=== PATIENT | female | born 1980 | race African-American/Black ===

== ENCOUNTER → 2019-06-29 | Emergency (ER) | payer SELFPAY ==
[~2019-06-29] VITALS: Ht 170.2 cm; Wt 61.2 kg
[~2019-06-29] MED LIST: BACITRACIN15 GM TOPIC; CIPROFLOXACIN500 M2 ORAL; CLARITIN-D 121 EAC1 ORAL; GUAIFENESIN1200 MG PO; IBUPROFEN600 MG ORAL; KEFLEX500 MG ORAL
[2019-06-29 16:53] VITALS: BP 122/79
--- NOTE | 2019-06-29 17:00 | NUR ---
ED Nurse Note: Patient arrived to ED by car from home complaining of pain in left foot x 4 days. AxO x 4, no acute distress at this time. Patient did not injure the foot but states that it might be a pair of shoes she was wearing.
--- NOTE | 2019-06-29 17:29 | Emergency Room Report ---
History of Present Illness General Chief Complaint: Pain Source: Patient Present Illness HPI 38-year-old female presents to the emergency department complaining of 5 out of 10 severity pain x4 days localized to the base of the left great toe. Patient denies trauma or fall however she states onset of her symptoms was after wearing high heels all day. She reports walking exacerbates her pain. She denies erythema, swelling, bruising or warmth. She denies history of gout. She denies any aggravating or relieving factors at this time. Allergies: Coded Allergies: NO KNOWN DRUG ALLERGIES (Unverified Allergy, Unknown, 03/18/14) Patient History Past Medical History: see triage record Past Surgical History: none Pertinent Family History: none Last Menstrual Period: 1 week ago Reviewed Nursing Documentation: PMH: Agreed; PSxH: Agreed Nursing Documentation-PMH Past Medical History: No Stated History Review of Systems All Other Systems: negative except mentioned in HPI Physical Exam Vital Signs Date Time Temp Pulse Resp B/P (MAP) Pulse Ox O2 Delivery O2 Flow Rate FiO2 06/29/19 16:53 98.8 86 16 122/79 (93) 98 Room Air Sp02 EP Interpretation: reviewed, normal General Appearance: no apparent distress, alert, GCS 15, non-toxic Head: normocephalic, atraumatic Eyes: bilateral eye normal inspection, bilateral eye PERRL ENT: hearing grossly normal, normal voice Neck: full range of motion Respiratory: lungs clear, normal breath sounds, speaking full sentences Cardiovascular #1: regular rate, rhythm, normal capillary refill Cardiovascular #2: 2+ dorsalis pedis (L) Musculoskeletal: normal range of motion, gait/station normal, tender - TTP and the plantar aspect of the left first metatarsal joint. Pain with extension of the left great toe. No obvious deformity, erythema, warmth, bruising or swelling. Neurologic: alert, motor strength/tone normal, oriented x3, sensory intact, responsive, speech normal Psychiatric: judgement/insight normal Skin: normal color, normal inspection Medical Decision Making PA Attestation Dr. Pérez Is my supervising Physician whom patient management has been discussed with. Diagnostic Impression: Primary Impression: Sprain, metatarsophalangeal joint Qualified Codes: S93.529A - Sprain of metatarsophalangeal joint of unspecified toe(s), initial encounter ER Course 38-year-old female presents to the emergency department complaining of 5 out of 10 severity pain x4 days localized to the base of the left great toe. Patient denies trauma or fall however she states onset of her symptoms was after wearing high heels all day. She reports walking exacerbates her pain. She denies erythema, swelling, bruising or warmth. She denies history of gout. She denies any aggravating or relieving factors at this time. Ddx considered but are not limited to Fracture, dislocation, contusion, Sprain/ Strain/Spasm, turf toe. Vital signs: are WNL, pt. is afebrile H&PE are most consistent with musculoskeletal injury will perform imaging to r/ o fractures/dislocations. ORDERS: -Urine Hcg: Negative - X-ray LEFT FOOT 3 Views - negative for fx, Dislocation, or significant soft tissue injury, per preliminary read in ED, and signed by CARO Prado, my supervising physician has reviewed, and agrees with my interpretation. ED INTERVENTIONS: - IBU PO DISCHARGE: At this time pt. is stable for d/c to home. Will provide printed patient care instructions, and any necessary prescriptions. Care plan and follow up instructions have been discussed with the patient prior to discharge. Other X-Ray Diagnostic Results Other X-Ray Diagnostic Results : X-Ray ordered: Left Foot # of Views/Limited Vs Complete: 3 View Indication: Pain EP Interpretation: Yes CARO Xray: Interpretation reviewed, by supervising MD, and agrees with findings. Interpretation: no dislocation, no soft tissue swelling, no fractures Impression: No acute disease Electronically Signed by: Demetrice Prado PA-C Last Vital Signs Date Time Temp Pulse Resp B/P (MAP) Pulse Ox O2 Delivery O2 Flow Rate FiO2 06/29/19 16:53 98.8 86 16 122/79 (93) 98 Room Air Disposition: HOME, SELF-CARE Condition: Stable Scripts Ibuprofen* (MOTRIN*) 600 Mg Tablet 600 MG ORAL THREE TIMES A DAY, #30 TAB 0 Refills Prov: Demetrice Prado 06/29/19 Patient Instructions: Turf Toe Additional Instructions: Take medications as directed. Follow up with a Primary Care Provider in 3-5 days, even if your symptoms have resolved. Return sooner to ED if new symptoms occur, or current symptoms become worse. - Please note that this Emergency Department Report was dictated using Dragon financial investment manager technology software, occasionally this can lead to erroneous entry secondary to interpretation by the dictation equipment. Demetrice Prado Jun 29, 2019 17:29
--- NOTE | 2019-06-29 17:50 | NUR ---
Patient cleared for discharge by ER MD. Patient verbalized understanding regarding discharge instructions.
--- NOTE | 2019-06-29 19:36 | NUR ---
Note oliverone in EDM - 06/29/19 at 1938 by VIKKI ED Nurse Note: Patient arrived to ED by car from home complaining of pain in left foot x 4 days. AxO x 4, no acute distress at this time. Patient did not injure the foot but states that it might be a pair of shoes she was wearing.
--- NOTE | 2019-06-30 14:12 | Diagnostic Imaging Report ---
Indication: Left foot pain Technique: 3 views left foot Comparison: none Findings: No acute fractures. No dislocations. Joint spaces are preserved. Impression: Negative
== END | disposition home or self-care (01) ==
LOC: EMR 16:32
DX: S93.525A Sprain of metatarsophalangeal joint of left lesser toe(s), initial encounter (principal); X58.XXXA Exposure to other specified factors, initial encounter; Y93.9 Activity, unspecified; Y92.9 Unspecified place or not applicable
CPT/HCPCS: 81025; 99283

== ENCOUNTER → 2019-06-29 | Emergency (ER) | payer SELFPAY ==
[~2019-06-29] VITALS: Ht 170.2 cm; Wt 61.2 kg
[2019-06-29 11:45] VITALS: BP 115/80
--- NOTE | 2019-06-29 16:38 | Emergency Room Report ---
History of Present Illness General Chief Complaint: Pain Source: Patient (Demetrice Prado) Present Illness HPI This patient left prior to evaluation by medical provider. (Demetrice Prado) Allergies: Coded Allergies: NO KNOWN DRUG ALLERGIES (Unverified Allergy, Unknown, 03/18/14) Patient History Last Menstrual Period: 2 weeks ago (Demetrice Prado) Nursing Documentation-[facility] Past Medical History: No Stated History (Demetrice Prado) Physical Exam Vital Signs Date Time Temp Pulse Resp B/P (MAP) Pulse Ox O2 Delivery O2 Flow Rate FiO2 06/29/19 11:45 98.4 76 16 115/80 (92) 98 Room Air (Demetrice Prado) Medical Decision Making PA Attestation Dr. Fraser Is my supervising Physician whom patient management has been discussed with. (Demetrice Prado) ER Course This patient left prior to evaluation by medical provider. (Demetrice Prado) Last Vital Signs Date Time Temp Pulse Resp B/P (MAP) Pulse Ox O2 Delivery O2 Flow Rate FiO2 06/29/19 11:45 98.4 16 115/80 98 Room Air 06/29/19 11:45 76 (Demetrice Prado) Disposition: LEFT W/OUT BEING SEEN Condition: Unknown Referrals: NOT CHOSEN IPA/,REFERRING (PCP) Demetrice Prado Jun 29, 2019 16:38 Ritchie Fraser MD Jun 29, 2019 20:38
== END | disposition left against medical advice (07) ==
LOC: EMR 12:40
DX: Z53.21 Procedure and treatment not carried out due to patient leaving prior to being seen by health care provider (principal); R52 Pain, unspecified